=== PATIENT | female | born 1970 | race Caucasian/White ===

== ENCOUNTER 2018-08-31 07:13 | Emergency (ER) | payer OTHER ==
[~2018-08-31] VITALS: Ht 172.7 cm; Wt 70.0 kg
[~2018-08-31 07:13] MED LIST: AMOXICILLIN/CL875 MG OR; AUGMENTIN875TAB PO; BACTROBAN2 % EX; CHANTIX STARTIN0.5 & OR; DAPSONE100 MG OR; FEMRING VA; KLONOPIN0.5 MG PO; LEXAPRO10 MG PO; NAPROSYN500 MG OR; OMEPRAZOLE40 MG PO; PROTONIX40 M2 PO; TOBRAMYCIN0.3 % OD; TRAZODONE100 MG PO
[2018-08-31] MEDS ORDERED: HORMONES PO (07:45)
[2018-08-31] MEDS ORDERED: HYDROCO/APAP1 TA9 PO (08:28)
[2018-08-31] MEDS ORDERED: MOTRIN400 MG PO (08:28)
[2018-08-31 08:45] VITALS: BP 122/75
== END 2018-08-31 09:05 | disposition home or self-care (01) | DRG 563 ==
LOC: ED 07:13
DX: S82.832A Other fracture of upper and lower end of left fibula, initial encounter for closed fracture (principal); W10.9XXA Fall (on) (from) unspecified stairs and steps, initial encounter; Y92.009 Unspecified place in unspecified non-institutional (private) residence as the place of occurrence of the external cause

== ENCOUNTER 2018-10-14 07:03 | Day surgery (SDC) | payer OTHER ==
[~2018-10-14 07:03] MED LIST changes: +ALEVE220 M1 PO; +CALCITRATE950 MG PO; +DESYREL50 MG PO; +HORMONES PO; +HYDROCO/APAP1 TA9 PO; +MOTRIN400 MG PO; +VITAMIN D32000 UNIT PO
[2018-10-14] MEDS ORDERED: ZOFRAN ODT4 MG PO (10:18)
[2018-10-14] MEDS ORDERED: KEFLEX500 MG PO (10:18)
[2018-10-14] MEDS ORDERED: PERCOCET 10/31 COMBO PO (10:18)
[2018-10-14] MEDS ORDERED: ASPIRIN EC325 MG PO (10:18)
[2018-10-14 10:39] VITALS: BP 123/70
== END 2018-10-14 11:05 | disposition home or self-care (01) | DRG 494 ==
LOC: ORM 07:03
PROVIDERS: ATTEND Podiatrist Foot & Ankle Surgery
PROC: 0QUK07Z Supplement Left Fibula with Autologous Tissue Substitute, Open Approach (ICD-10-PCS; principal; 2018-10-14)
PROC: 0QB Lower Bones, Excision (ICD-10-PCS; 2018-10-14)
PROC: 0LNP0ZZ Release Left Lower Leg Tendon, Open Approach (ICD-10-PCS; 2018-10-14)
DX: S82.832K Other fracture of upper and lower end of left fibula, subsequent encounter for closed fracture with nonunion (principal); M65.862 Other synovitis and tenosynovitis, left lower leg; X58.XXXD Exposure to other specified factors, subsequent encounter
CPT/HCPCS: C1713; J1100; J2710

== ENCOUNTER 2019-01-12 14:27 | Emergency (ER) | payer OTHER ==
[~2019-01-12] VITALS: Ht 172.7 cm; Wt 68.2 kg
[~2019-01-12 14:27] MED LIST changes: +ASPIRIN EC325 MG PO; +KEFLEX500 MG PO; +PERCOCET 10/31 COMBO PO; +ZOFRAN ODT4 MG PO
[2019-01-12] MEDS ORDERED: VITAMIN D310000 UNI1 PO (15:05)
[2019-01-12] MEDS ORDERED: ESTROVEN PO (15:08)
[2019-01-12] MEDS ORDERED: CALCI17 PO (15:08)
[2019-01-12] MEDS ORDERED: MULTIVITAMI1 PO (15:09)
[2019-01-12] MEDS ORDERED: TORADOL PO (15:34)
[2019-01-12 15:45] VITALS: BP 132/79
== END 2019-01-12 15:45 | disposition home or self-care (01) | DRG 948 ==
LOC: ED 14:27
DX: G89.18 Other acute postprocedural pain (principal); Z98.890 Other specified postprocedural states

== ENCOUNTER 2021-01-01 16:19 | Emergency (ER) | payer OTHER ==
[~2021-01-01] VITALS: Ht 172.7 cm; Wt 56.8 kg
[~2021-01-01 16:19] MED LIST changes: +CALCI17 PO; +ESTROVEN PO; +MULTIVITAMI1 PO; +TORADOL PO; +VITAMIN D310000 UNI1 PO
[2021-01-01] MEDS ORDERED: CYCLOBENZAPRINE10 MG PO (18:14)
[2021-01-01 18:32] VITALS: BP 114/52
== END 2021-01-01 18:36 | disposition home or self-care (01) | DRG 563 ==
LOC: ED 16:19
DX: S39.013A Strain of muscle, fascia and tendon of pelvis, initial encounter (principal); X50.0XXA Overexertion from strenuous movement or load, initial encounter; Y93.B9 Activity, other involving muscle strengthening exercises

== ENCOUNTER 2022-12-04 09:05 | Day surgery (SDC) | payer OTHER ==
[~2022-12-04] VITALS: Ht 172.7 cm; Wt 60.8 kg
[~2022-12-04 09:05] MED LIST changes: +CYCLOBENZAPRINE10 MG PO
[2022-12-04 14:43] VITALS: BP 95/56
== END 2022-12-04 14:30 | disposition home or self-care (01) | DRG 391 ==
LOC: ORM 09:05
PROVIDERS: ATTEND Surgery
PROC: 0DB48ZX Excision of Esophagogastric Junction, Via Natural or Artificial Opening Endoscopic, Diagnostic (ICD-10-PCS; principal; 2022-12-04)
PROC: 0DBB8ZX Excision of Ileum, Via Natural or Artificial Opening Endoscopic, Diagnostic (ICD-10-PCS; 2022-12-04)
DX: K21.00 Gastro-esophageal reflux disease with esophagitis, without bleeding (principal); K44.9 Diaphragmatic hernia without obstruction or gangrene; Z12.11 Encounter for screening for malignant neoplasm of colon; K64.8 Other hemorrhoids; K85.00 Idiopathic acute pancreatitis without necrosis or infection; Z80.0 Family history of malignant neoplasm of digestive organs; Z83.79 Family history of other diseases of the digestive system

== ENCOUNTER 2024-03-28 17:58 | Emergency (ER) | payer OTHER | END 2024-03-28 18:17 | disposition home or self-care (01) | DRG 951 | LOC: ED 17:58 → LWOBS 18:14 | DX: Z53.21 Procedure and treatment not carried out due to patient leaving prior to being seen by health care provider (principal) ==